=== PATIENT | male | born 1985 | race African-American/Black ===

== ENCOUNTER 2017-07-13 00:29 | Emergency (ER) | payer OTHER ==
[~2017-07-13] VITALS: Ht 185.4 cm; Wt 68.0 kg
[2017-07-13 00:40] VITALS: BP 126/68
[2017-07-13] MEDS ORDERED: oxyCODONE/APAP 5/325 1 TAB TABLET PO ONE (02:00)
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
== END 2017-07-13 01:48 | disposition home or self-care (01) ==
LOC: ER 00:29
DX: S40.012A Contusion of left shoulder, initial encounter (principal); M54.5 Low back pain; G89.29 Other chronic pain; V49.88XA Car occupant (driver) (passenger) injured in other specified transport accidents, initial encounter; Y93.89 Activity, other specified; Y99.8 Other external cause status; Y92.488 Other paved roadways as the place of occurrence of the external cause
CPT/HCPCS: 71010; 73030; 99284

== ENCOUNTER 2019-04-08 08:36 | Emergency (ER) | payer OTHER, SELFPAY ==
[~2019-04-08] VITALS: Ht 185.4 cm; Wt 72.6 kg
[2019-04-08] MEDS ORDERED: CYCL10TA2 PO (09:17)
[2019-04-08] MEDS ORDERED: METH4TAB2 PO (09:17)
[2019-04-08] MEDS ORDERED: DICL50TA4 PO (09:17)
--- NOTE | 2019-04-08 09:18 | PHYS DOC ---
Past Medical History Past Medical History: Other Additional Past Medical Histor: chronic back pain, scoliosis Past Surgical History: No Surgical History Alcohol Use: None Drug Use: None Adult General Chief Complaint Chief Complaint: Neck Pain HPI HPI Patient is a 33 year old male with no significant medical history who presents to the ED today complaining of a 20 out of 10 left lateral neck pain, left shoulder pain, mid and low back pain, patient says symptoms have been going on for years and got worse in the last 3 weeks. Patient denies any known injury. He states his been in this ED before and did x-rays which showed he had scoliosis. He states his symptoms have improved. He states he has been on hydrocodone and muscle relaxers with no relief. Patient states his pain is worse with rotating his neck to the left side. Denies any pain radiating to bilateral lower extremities. Denies any loss of bowel bladder function. Review of Systems Review of Systems Constitutional: Denies fever or chills [] Eyes: Denies change in visual acuity, redness, or eye pain [] HENT: Denies nasal congestion or sore throat [] Respiratory: Denies cough or shortness of breath [] Cardiovascular: No additional information not addressed in HPI [] GI: Denies abdominal pain, nausea, vomiting, bloody stools or diarrhea [] : Denies dysuria or hematuria [] Musculoskeletal: Reports left lateral neck pain, left shoulder pain, mid and low back pain. Integument: Denies rash or skin lesions [] Neurologic: Denies headache, focal weakness or sensory changes [] All other systems were reviewed and found to be within normal limits, except as documented in this note. Allergies Allergies Allergies Coded Allergies Type Severity Reaction Last Updated Verified No Known Drug Allergies 12/04/14 No Physical Exam Physical Exam Constitutional: Well developed, well nourished, no acute distress, non-toxic appearance. [] HENT: Normocephalic, atraumatic, bilateral external ears normal, oropharynx moist, no oral exudates, nose normal. [] Eyes: PERRLA, EOMI, conjunctiva normal, no discharge. [] Neck: No deformity noted on the cervical spine, pain elicited on rotation of the neck to the left side, tenderness on palpation of the left lateral cervical spine, no midline cervical spine tenderness, supple, no stridor. [] Cardiovascular:Heart rate regular rhythm, no murmur [] Lungs & Thorax: Bilateral breath sounds clear to auscultation [] Abdomen: Bowel sounds normal, soft, no tenderness, no masses, no pulsatile julio s. [] Skin: Warm, dry, no erythema, no rash. [] Back: No tenderness, no CVA tenderness. [] Extremities: No tenderness, no cyanosis, no clubbing, ROM intact, no edema. [] Neurologic: Alert and oriented X 3, normal motor function, normal sensory function, no focal deficits noted. [] Psychologic: Affect normal, judgement normal, mood normal. [] Current Patient Data Vital Signs Vital Signs Date Time Temp Pulse Resp B/P (MAP) Pulse Ox O2 Delivery O2 Flow Rate FiO2 04/08/19 08:41 98.3 95 16 140/82 (101) 100 Room Air 98.3 EKG EKG [] Radiology/Procedures Radiology/Procedures [] Course & Med Decision Making Course & Med Decision Making Pertinent Labs and Imaging studies reviewed. (See chart for details) This is a 33-year-old female patient presenting to the ED today with complaints of left lateral neck pain, mid and low back pain, left shoulder pain, symptoms have been going on for years and got 10 worse in the last 3 weeks. No known injury. Has been diagnosed with scoliosis before. Spoke to patient about the n eed to follow-up with a spine center or neurosurgery. Provided him information for neurosurgery follow-up at [place]. Discharged with Medrol Dosepak, diclofenac, cyclobenzaprine. Dragon Disclaimer Dragon Disclaimer This electronic medical record was generated, in whole or in part, using a voice recognition dictation system. Departure Departure Impression: Primary Impression: Back pain Additional Impressions: Neck pain Thoracic back pain Shoulder pain, left Disposition: HOME, SELF-CARE Condition: STABLE Referrals: NO PCP (PCP) HILTON EUGENE MD follow up in 1 week Patient Instructions: Back Pain, Adult, Musculoskeletal Pain Additional Instructions: You were evaluated in the emergency room for neck pain, shoulder pain, back pain. We highly recommend you follow-up with a neurosurgeon or spine center. We provided you with contact information for Dr. Eugene our neurosurgeon. Contact his office on Wednesday and set up a follow-up appointment. Consider applying heat to your neck and back. It may help. Scripts Diclofenac Sodium (DICLOFENAC SODIUM) 50 Mg Tablet.dr 1 TAB PO BID, #20 TAB 0 Refills Prov: YOLI MARCOS APRN 04/08/19 Methylprednisolone (MEDROL) 4 Mg Tab.ds.pk 1 PKG PO UD, #1 PKG Prov: YOLI MARCOS APRN 04/08/19 Cyclobenzaprine Hcl (CYCLOBENZAPRINE HCL) 10 Mg Tablet 1 TAB PO TID, #30 TAB Prov: YOLI MARCOS APRN 04/08/19 Problem Qualifiers Primary Impression: Back pain Back pain location: low back pain Chronicity: chronic Back pain laterality: left Sciatica presence: without sciatica Qualified Codes: M54.5 - Low back pain; G89.29 - Other chronic pain Additional Impressions: Thoracic back pain Chronicity: chronic Back pain laterality: left Qualified Codes: M54.6 - Pain in thoracic spine; G89.29 - Other chronic pain Shoulder pain, left Chronicity: chronic Qualified Codes: M25.512 - Pain in left shoulder; G89.29 - Other chronic pain YOLI MARCOS APRN April 08, 2019 09:18
[2019-04-08 09:27] VITALS: BP 135/90
== END 2019-04-08 09:27 | disposition home or self-care (01) ==
LOC: ER 08:36
DX: M54.2 Cervicalgia (principal); M54.5 Low back pain; M25.512 Pain in left shoulder; M54.6 Pain in thoracic spine; G89.29 Other chronic pain
CPT/HCPCS: 99283